=== PATIENT | female | born 1955 | race Caucasian/White ===

== ENCOUNTER 2023-03-01 15:17 | Observation (INO) | payer BC, MEDICARE ==
[2023-03-01] MEDS ORDERED: Nitroglycerin 0.4 MG TAB (25 Tab Bottle) SL PRN (15:54)
[2023-03-01 16:01] VITALS: BMI 46.5
[2023-03-01] MEDS ORDERED: traMADol HCl 50 MG TAB PO PRN (16:24)
[2023-03-01] MEDS ORDERED: Dextrose 50% Abboject 50 ML SYRINGE SLOW IVP PRN (16:33)
[2023-03-01] MEDS ORDERED: Dextrose 5% in Water 1,000 ML IV PRN (16:33)
[2023-03-01] MEDS ORDERED: Glucagon 1 MG/ML KIT IM PRN (16:33)
[2023-03-01] MEDS ORDERED: HumaLOG 300 UNITS/3 ML VIAL SC PRN (16:33)
[2023-03-01] MEDS: HumaLOG 300 UNITS/3 ML VIAL SC PRN (17:08)
[2023-03-01 17:12] LABS: Troponin I 0.011 ng/mL (< 0.028)
[2023-03-01 17:34] LABS: Magnesium 1.8 mg/dL (1.6-2.6)
[2023-03-01 19:32] LABS: Troponin I Less than 0.010 ng/mL (< 0.028)
[2023-03-01 20:20] LABS: Hemoglobin A1c 7.1 % (4.0-6.0)
[2023-03-01] MEDS ORDERED: Gabapentin 100 MG CAP PO SCH (21:00)
[2023-03-01] MEDS ORDERED: Atorvastatin Calcium 40 MG TAB PO SCH (21:00)
[2023-03-02] MEDS: HumaLOG 300 UNITS/3 ML VIAL SC PRN (08:08)
[2023-03-02] MEDS ORDERED: Lisinopril 20 MG TAB PO SCH (09:00)
[2023-03-02] MEDS ORDERED: Aspirin Chewable 81 MG TAB PO SCH (09:00)
[2023-03-02] MEDS ORDERED: Sertraline 100 MG TAB PO SCH (09:00)
[2023-03-02 12:25] VITALS: BP 131/63; TEMP 97.9
== END 2023-03-02 13:15 | disposition home or self-care (01) ==
LOC: CSHTELE 15:17
PROVIDERS: ADMIT Internal Medicine; ATTEND Internal Medicine
DX: R07.2 Precordial pain (principal); I25.10 Atherosclerotic heart disease of native coronary artery without angina pectoris; E11.40 Type 2 diabetes mellitus with diabetic neuropathy, unspecified; I10 Essential (primary) hypertension; G47.33 Obstructive sleep apnea (adult) (pediatric); E78.5 Hyperlipidemia, unspecified; F32.A Depression, unspecified; E66.01 Morbid (severe) obesity due to excess calories; Z68.42 Body mass index [BMI] 45.0-49.9, adult; Z98.51 Tubal ligation status; Z96.653 Presence of artificial knee joint, bilateral; Z79.84 Long term (current) use of oral hypoglycemic drugs; Z79.4 Long term (current) use of insulin; Z79.899 Other long term (current) drug therapy
CPT/HCPCS: 36415; 36416; 83036; 83735; 84443; 93005; 93010; 93306; 94660; 96372; G0378; J1650; J1815